=== PATIENT | male | born 1980 | race American Indian/Alaskan Native ===

== ENCOUNTER 2017-12-06 10:46 | Day surgery (SDC) | payer OTHER ==
[~2017-12-06 10:46] MED LIST: ANCEF/STERILE WATER 2 GM/20 ML IV NR; LACTATED RINGERS 1,000 ML IV SCH; VERSED IV NR
[2017-12-06] MEDS ORDERED: NACL BACTERIOSTATIC INFILTRATI ONE (11:17)
[2017-12-06] MEDS ORDERED: ZOFRAN IV PRN (11:46)
--- NOTE | 2017-12-06 11:46 | Anesthesia Day of Surgery ---
Anesthesia Day of Surgery - Day of Surgery Patient Examined: Yes Patient H&P Reviewed: Yes Patient is NPO: Yes
--- NOTE | 2017-12-06 11:46 | Anesthesia Consultation ---
Anesthesia Consult and Med Hx - Airway Anesthetic Teeth Evaluation: Good ROM Head & Neck: Adequate Mental/Hyoid Distance: Adequate Mallampati Class: Class I Intubation Access Assessment: Good - Pulmonary Exam CTA: Yes - Cardiac Exam Cardiac Exam: RRR - Pre-Operative Health Status ASA Pre-Surgery Classification: ASA1 Proposed Anesthetic Plan: General - Pulmonary Hx Smoking: No Hx Sleep Apnea: No (LJ PRE SCREEN LOW RISK) - Cardiovascular System Hx Hypertension: No - Other Systems Hx Cancer: No
[2017-12-06] MEDS ORDERED: LACTATED RINGERS 1,000 ML IV SCH (12:00)
[2017-12-06] MEDS ORDERED: DILAUDID ONE (13:06)
[2017-12-06] MEDS ORDERED: XYLOCAINE MPF 2% ONE (13:06)
[2017-12-06] MEDS ORDERED: DIPRIVAN 10 MG/ML IV ONE ×3 (13:06→13:55)
[2017-12-06] MEDS ORDERED: NACL 0.9% IR ONE (14:00)
[2017-12-06] MEDS ORDERED: ZOFRAN ONE (14:00)
--- NOTE | 2017-12-06 14:17 | Short Stay Summary ---
Short Stay Documentation Date of service: 12/06/17 - History H&P: obtained from office - Allergies and Medications Current Medications: Allergies No Known Allergies Allergy (Verified 12/02/17 15:54) Home Medications Medication Instructions Recorded Confirmed Last Taken Type No Known Home Medications [No 12/02/17 12/02/17 Unknown History Reported Home Medications] Active Medications Cefazolin Sodium (Ancef/Sterile Water 2 Gm/20 Ml) 2 gm IV PREOP NR Stop: 12/06/17 23:00 Hydromorphone HCl (Dilaudid) 0.5 mg IV Q10MIN PRN PRN Reason: Pain , Severe (7-10) Stop: 12/06/17 23:59 Lactated Ringer's (Lactated Ringers) 1,000 mls @ 100 mls/hr IV DIRECT JAY Last Admin: 12/06/17 11:32 Dose: 100 mls/hr Lactated Ringer's (Lactated Ringers) 1,000 mls @ 100 mls/hr IV DIRECT JAY Midazolam HCl (Versed) 2 mg IV PREOP NR Stop: 12/06/17 23:59 Last Admin: 12/06/17 11:45 Dose: 2 mg Ondansetron HCl (Zofran) 4 mg IV ONCE PRN PRN Reason: Nausea And Vomiting - Brief post op/procedure progress note Date of procedure: 12/06/17 Pre-op diagnosis: left testes mass Post-op diagnosis: same Procedure: left radical orchiectomy Anesthesia: ALFRED Surgeon: HILARY KC Estimated blood loss: minimal Pathology: list (testes---left) Specimen disposition: to lab Condition: stable - Hospital course Hospital course: norco on chart, no lifting until seen in office - Disposition Condition at discharge: Stable Disposition: DC-01 TO HOME OR SELFCARE Short Stay Discharge Plan Follow up with: MAYRA CLARK MD [Primary Care Provider] - 7 Days
[2017-12-06] MEDS: DILAUDID IV PRN ×2 (14:50→15:00)
[2017-12-06] MEDS ORDERED: NORCO 5/325 PO PRN (15:13)
[2017-12-06 17:30] VITALS: BP 139/76
--- NOTE | 2017-12-06 17:34 | Operative Report ---
PREOPERATIVE DIAGNOSIS: Left testicular mass. POSTOPERATIVE DIAGNOSIS: Left testicular mass. PROCEDURE: Radical left orchiectomy. SURGEON: Levy Eason M.D. ANESTHESIA: General. ESTIMATED BLOOD LOSS: Minimal. FLUIDS: Crystalloid. COMPLICATIONS: No complications. INDICATIONS: This 37-year-old gentleman referred by Dr. Gini Gutierrez per side for evaluation of a left testicular mass. Ultrasound confirmed 3.4 cm solid left testicular mass, which was confirmed on exam. The patient had no surgeries in the past. No children. Normal erections. Testosterone was normal. Tumor markers are pending. He presents now for surgery. Risks, benefits, and complications were explained. DESCRIPTION OF PROCEDURE: The patient was taken to the operative suite, placed in a supine position. After adequate general anesthesia, he was prepped and draped in a sterile fashion. Left inguinal incision was made with the Bovie. Sharp dissection was taken down to the external oblique fascia, which was opened the length of the incision. Ilioinguinal nerve could be appreciated, was retracted laterally and spared. Spermatic cord was isolated. No adenopathy could be appreciated. Dissection to the internal ring was performed. A Tacos drain was used to control the proximal aspect of the cord. The testicle was delivered onto the operative field. Obvious testicular mass could be appreciated. A 0 silk in an interrupted fashion x 3 was used to tie off the testicle. It was excised with the cord, sent for routine pathologic evaluation. Adequate hemostasis was achieved. No hernia defect could be appreciated. The external oblique fascia was closed with 2-0 Vicryl in a running fashion. Subcutaneous tissue, Nelson's layer was closed with 2-0 Vicryl in a running fashion. Skin was closed with raleigh, dressing was placed. The patient was extubated and taken to recovery room in stable condition. He will go home on [place] and follow up in the office. JOB# [id number] CHRIS/CARMINE
== END 2017-12-06 16:46 | disposition home or self-care (01) ==
LOC: OR 10:46
PROVIDERS: ATTEND Urology
DX: D07.69 Carcinoma in situ of other male genital organs (principal); N50.89 Other specified disorders of the male genital organs; I10 Essential (primary) hypertension
CPT/HCPCS: 54530; 88309; 88341; 88342; J0690; J1170; J2250; J2405; J2704; J7120; 88305

== ENCOUNTER 2020-07-10 07:07 | Day surgery (SDC) | payer OTHER ==
[~2020-07-10 07:07] MED LIST changes: -ANCEF/STERILE WATER 2 GM/20 ML IV NR; -LACTATED RINGERS 1,000 ML IV SCH; -VERSED IV NR; +ceFAZolin/Water 2 GM/20 ML 2 GM/20 ML SYRINGE IV NR
[2020-07-10] MEDS ORDERED: LACTATED RINGERS 1,000 ML IV SCH (07:17)
[2020-07-10] MEDS ORDERED: MIDAZOLAM 2 MG/2 ML INJ IV NR (07:17)
[2020-07-10] MEDS ORDERED: ONDANSETRON 4 MG/2 ML INJ IV PRN (07:50)
[2020-07-10] MEDS ORDERED: HYDROmorphone 1 MG/1 ML INJ IV PRN (07:50)
--- NOTE | 2020-07-10 07:50 | Anesthesia Day of Surgery ---
Anesthesia Day of Surgery - Day of Surgery Patient Examined: Yes Patient H&P Reviewed: Yes Patient is NPO: Yes
--- NOTE | 2020-07-10 07:50 | Anesthesia Consultation ---
Anesthesia Consult and Med Hx Date of service: 07/10/20 - Airway Anesthetic Teeth Evaluation: Good ROM Head & Neck: Adequate Mental/Hyoid Distance: Adequate Mallampati Class: Class III Intubation Access Assessment: Possibly Difficult - Pulmonary Exam CTA: Yes - Cardiac Exam Cardiac Exam: RRR - Pre-Operative Health Status ASA Pre-Surgery Classification: ASA1 Proposed Anesthetic Plan: General - Pulmonary Hx Smoking: No Hx Respiratory Symptoms: No - Cardiovascular System Hx Hypertension: No Hx Heart Attack/AMI: No - Central Nervous System CVA: No - Gastrointestinal Hx Gastroesophageal Reflux Disease: No - Endocrine Hx Renal Disease: No Hx Liver Disease: No Hx Insulin Dependent Diabetes: No Hx Non-Insulin Dependent Diabetes: No Hx Thyroid Disease: No - Other Systems Hx Cancer: Yes (testicular ca s/p orchiectomy 2018) Hx Obesity: Yes (BMI 31) - Additional Comments Anesthesia Medical History Comments: No hx anesthetic complications.
[2020-07-10] MEDS ORDERED: LIDOCAINE MPF (2%) 20 MG/1 ML VIAL 5 ML ONE (08:52)
[2020-07-10] MEDS ORDERED: HYDROmorphone 1 MG/1 ML INJ ONE (08:52)
[2020-07-10] MEDS ORDERED: propofoL 200 MG/20 ML VIAL IV ONE (08:52)
[2020-07-10] MEDS ORDERED: BUPIVACAINE/PF (0.25%) 2.5 MG/ML 30 ML VIAL INFILTRATI ONE (08:53)
[2020-07-10] MEDS ORDERED: BACITRACIN ZINC OINT 28.4 GM TP ONE ×2 (08:53→11:08)
[2020-07-10] MEDS ORDERED: NEOMY 40 MG/POLYMYXIN B 200,000 UNITS/ML (GU) AMPULE IR ONE ×2 (08:53→10:13)
[2020-07-10] MEDS ORDERED: SODIUM CHLORIDE 0.9% 50 ML ONE (08:54)
[2020-07-10] MEDS ORDERED: SODIUM CHLORIDE P/F VIAL 10 ML 0 ML ONE (08:54)
[2020-07-10] MEDS ORDERED: fentaNYL 100 MCG/2 ML INJ ONE (09:41)
[2020-07-10] MEDS ORDERED: SODIUM CHLORIDE 0.9% IRR 1,500 ML BOTTLE IR ONE (10:13)
[2020-07-10] MEDS ORDERED: SODIUM CHLORIDE 0.9% 50 ML IVPB IV ONE (10:14)
[2020-07-10] MEDS ORDERED: ONDANSETRON 4 MG/2 ML INJ ONE (10:41)
[2020-07-10] MEDS ORDERED: KETOROLAC 30 MG/1 ML INJ ONE (10:42)
--- NOTE | 2020-07-10 11:04 | Short Stay Summary ---
Short Stay Documentation Date of service: 07/10/20 - History H&P: obtained from office - Allergies and Medications Current Medications: Allergies No Known Allergies Allergy (Verified 12/02/17 15:54) Home Medications Medication Instructions Recorded Confirmed Last Taken Type No Known Home Medications [No 12/02/17 07/03/20 Unknown History Reported Home Medications] Active Medications Hydromorphone HCl (Dilaudid) 0.5 mg IV Q10MIN PRN PRN Reason: Pain , Severe (7-10) Cefazolin Sodium (Ancef/Sterile Water 2 Gm/20 Ml) 2 gm in 20 mls @ 80 mls/hr IV PREOP NR; Protocol Stop: 07/10/20 22:00 Lactated Ringer's (Lactated Ringers) 1,000 mls @ 100 mls/hr IV DIRECT JAY Last Admin: 07/10/20 08:00 Dose: 100 mls/hr Documented by: Midazolam HCl (Versed) 2 mg IV ONCE NR Stop: 07/10/20 23:00 Last Admin: 07/10/20 08:00 Dose: 2 mg Documented by: Ondansetron HCl (Zofran) 4 mg IV ONCE PRN PRN Reason: Nausea And Vomiting - Brief post op/procedure progress note Date of procedure: 07/10/20 Pre-op diagnosis: phimosis, left testes cancer---sp orchiectomy Post-op diagnosis: same Procedure: circ, left testes implant placement Surgeon: HILARY CK Estimated blood loss: minimal Pathology: none Condition: stable - Hospital course Hospital course: bactrim & norco - Disposition Condition at discharge: Stable Disposition: DC-01 TO HOME OR SELFCARE Short Stay Discharge Plan Follow up with: PRIMARY CARE, [Primary Care Provider] - 7 Days
[2020-07-10] MEDS ORDERED: HYDROcodone/ACETAMINOPHEN 5-325 MG TAB PO ONE (12:05)
[2020-07-10 12:17] VITALS: BP 152/98
--- NOTE | 2020-07-10 14:51 | Post Anesthesia Evaluation ---
- Post Anesthesia Evaluation Patient Participated: Yes Airway Patent: Yes Stable Respiratory Function: Yes Nausea/Vomiting: No Temp > 96.8F: Yes Pain Manageable: Yes Adequeate Hydration: Yes Anesthesia Complications: No
--- NOTE | 2020-07-10 15:12 | Operative Report ---
PREOPERATIVE DIAGNOSES: Phimosis, left testicular cancer, status post orchiectomy. POSTOPERATIVE DIAGNOSES: Phimosis, left testicular cancer, status post orchiectomy. PROCEDURE: Circumcision, insertion of left testicular prosthesis. SURGEON: Levy Eason MD ANESTHESIA: General. ESTIMATED BLOOD LOSS: Minimal. FLUIDS: Crystalloid. COMPLICATIONS: No complications. INDICATIONS: This patient is a 39-year-old gentleman who was seen 2 years ago with left testicular mass. 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 He has been followed by Oncology (Dr. Teri Zee). He has done well. He has phimosis and presents now for circumcision and placement of left testicular prosthesis. Risks, benefits, and complications were explained. DESCRIPTION OF PROCEDURE: The patient was taken to the operative suite, placed in a supine position. After adequate general anesthesia, he was prepped and draped in a sterile fashion. Foreskin was marked at the level of the coronal ridge. Skin was circumferentially removed and sent for routine pathologic evaluation. Shaft skin was retracted proximally. Adequate hemostasis achieved. Distal and proximal shaft skin was reapproximated and closed with 3-0 chromic in an interrupted fashion. Next, an incision was made over his previous left inguinal incision for his cancer. Dissection was taken out to the dependent portion of the scrotum. Scrotal skin was pulled up dependent portion was pulled up through the incision, ____ two throws of 2-0 Prolene in a running fashion was placed. This was threaded through the testicular prosthesis, sutured down and appeared to be in good dependent position. Multiple attempts were performed before adequate placement could be appreciated. Copious irrigation was performed, adequate hemostasis achieved. Nelson's layer was closed with 2-0 Vicryl in a running fashion. Skin was closed with 2-0 Vicryl in an interrupted fashion. Steri-Strips were placed. Mummy wrap was placed around the penis with Xeroform gauze, followed by Alfredo and Annaan, as well as Alfredo was placed around the testicles to keep them in a dependent portion. He tolerated the procedure well. He was extubated and taken to the recovery room. He will go home on [place] and [place]. JOB# [id number] CHRIS/NTS
== END 2020-07-10 13:00 | disposition home or self-care (01) ==
LOC: OR 07:07
PROVIDERS: ATTEND Urology
DX: N47.1 Phimosis (principal); C62.92 Malignant neoplasm of left testis, unspecified whether descended or undescended; E66.9 Obesity, unspecified; Z79.899 Other long term (current) drug therapy; Z98.890 Other specified postprocedural states; Z68.31 Body mass index [BMI] 31.0-31.9, adult
CPT/HCPCS: 54161; 54660; 88304; J0690; J1170; J1885; J2250; J2405; J2704; J3010; J7120